=== PATIENT | male | born 1975 | race Caucasian/White ===

== ENCOUNTER → 2016-07-30 | Outpatient (CLI) | payer OTHER | LOC: FIMAGING 09:53 → EDSTATUS 09:54 | PROVIDERS: ATTEND Family Medicine | DX: S92.421A Displaced fracture of distal phalanx of right great toe, initial encounter for closed fracture (principal); M85.871 Other specified disorders of bone density and structure, right ankle and foot ==

== ENCOUNTER 2017-01-20 11:13 | Emergency (ER) | payer OTHER ==
[2017-01-20 11:18] VITALS: TEMP 96.8
--- NOTE | 2017-01-20 11:34 | EDPHY ---
H & P Stated Complaint: dog bite to R pointer finger "tip hanging" Time Seen by Provider: 01/20/17 11:27 HPI/ROS: CHIEF COMPLAINT: Finger amputation HISTORY OF PRESENT ILLNESS: The patient is a 42-year-old man who was breaking up a dog fight and was bitten on the right index finger. He has an amputation to the right index finger at the PIP joint. It is hanging from some fatty tissue. He denies other injuries. It was his pet dog and a neighbor's dog. REVIEW OF SYSTEMS: Constitutional: denies: chills, fever, recent illness, recent injury EENTM: denies: blurred vision, double vision, nose congestion Respiratory: denies: cough, shortness of breath Cardiac: denies: chest pain, irregular heart rate, lightheadedness, palpitations Gastrointestinal/Abdominal: denies: abdominal pain, diarrhea, nausea, vomiting, blood streaked stools Genitourinary: denies: dysuria, frequency, hematuria, pain Musculoskeletal: See HPI Skin: denies: lesions, rash, jaundice, bruising Neurological: denies: headache, numbness, paresthesia, tingling, dizziness, weakness Hematologic/Lymphatic: denies: blood clots, easy bleeding, easy bruising Immunologic/allergic: denies: HIV/AIDS, transplant EXAM: GENERAL: Well-appearing, well-nourished and in no acute distress. HEAD: Atraumatic, normocephalic. EYES: Pupils equal round and reactive to light, extraocular movements intact, sclera anicteric, conjunctiva are normal. ENT: TMs normal, nares patent, oropharynx clear without exudates. Moist mucous membranes. NECK: Normal range of motion, supple without lymphadenopathy or JVD. LUNGS: Breath sounds clear to auscultation bilaterally and equal. No wheezes rales or rhonchi. HEART: Regular rate and rhythm without murmurs, rubs or gallops. ABDOMEN: Soft, nontender, normoactive bowel sounds. No guarding, no rebound. No masses appreciated. BACK: No CVA tenderness, no spinal tenderness, step-offs or deformities EXTREMITIES: Amputated right index finger at the DIP joint. Macerated, pale NEUROLOGICAL: Cranial nerves II through XII grossly intact. Normal speech, normal gait. 5/5 strength, normal movement in all extremities, normal sensation PSYCH: Normal mood, normal affect. SKIN: Warm, dry, normal turgor, no visible rashes or lesions. Source: Patient Exam Limitations: No limitations - Personal History Current Tetanus/Diphtheria Vaccine: Unsure Current Tetanus Diphtheria and Acellular Pertussis (TDAP): Unsure - Medical/Surgical History Hx Asthma: No Hx Chronic Respiratory Disease: No Hx Diabetes: No Hx Cardiac Disease: No Hx Renal Disease: No Hx Cirrhosis: No Hx Alcoholism: No Hx HIV/AIDS: No Hx Splenectomy or Spleen Trauma: No Other PMH: depression - Social History Smoking Status: Never smoked Constitutional: Initial Vital Signs Temperature (C) 36.0 C 01/20/17 11:17 Heart Rate 78 01/20/17 11:17 Respiratory Rate 16 01/20/17 11:17 Blood Pressure 124/71 H 01/20/17 11:17 O2 Sat (%) 98 01/20/17 11:17 O2 Delivery Mode Room Air Allergies/Adverse Reactions: erythromycin base Allergy (Verified 01/20/17 11:16) penicillin G Allergy (Verified 01/20/17 11:16) Home Medications: Medication Instructions Recorded Cephalexin [Keflex] 500 mg PO TID #21 cap 01/20/17 Citalopram 01/20/17 Sulfamethox/Tmp 800/160 mg 1 tab PO BID #14 tab 01/20/17 [Bactrim Ds] oxyCODONE/APAP 5/325 [Percocet 1 - 2 tab PO Q4-6PRN PRN #7 tab 01/20/17 5/325 (RX)] Medical Decision Making - Diagnostics Imaging Results: Imaging Impressions Finger X-Ray 01/20/17 11:35 Impression: Fracture and displacement of the distal phalanx of the right index finger. Procedures: Digital block performed with 5 cc of 0.5% bupivacaine. Tolerated well. ED Course/Re-evaluation: 11:34 a.m. I immediately called [facility] to inquire about reimplantation. As notified that it is unlikely unless it is proximal to the PIP joint. 11:45 a.m. I discussed the case with Dr. Vasques from [facility]. He states that this amputation is not salvageable. I will consult our hand surgeon for amputation. 12:00 p.m. I discussed the case with Dr. Jon Cisneros who will come to the ER to repair. Dr. Cox knows the patient's friends and stopped by and agrees with the plan. I will perform a digital block. 12:[address] Cisneros is here repairing the patient's finger. 12:55 p.m. the patient's finger is been repaired. Dr. Cisneros requests and patient be discharged with Bactrim and Keflex. Differential Diagnosis: Partial list of the Differential diagnosis considered include but were not limited to; amputation, crush injury, and although unlikely based on the history and physical exam, I also considered dislocation, the foreign body. I discussed these differential diagnoses and the plan with the patient as well as the usual and expected course. The patient understands that the diagnosis is provisional and that in medicine we are not always correct and that further workup is often warranted. Usual and customary warnings were given. All of the patient's questions were answered. The patient was instructed to return to the emergency department should the symptoms at all worsen or return, otherwise to followup with the physician as we discussed. - Data Points Medications Given: Discontinued Medications Hydromorphone HCl (Dilaudid) 1 mg IVP EDNOW ONE Stop: 01/20/17 11:39 Last Admin: 01/20/17 11:42 Dose: 1 mg Cefazolin Sodium/Dextrose (Ancef 1 Gm (Premix)) 50 mls @ 200 mls/hr IV EDNOW ONE PRN Reason: Protocol Stop: 01/20/17 13:07 Last Admin: 01/20/17 12:59 Dose: 50 mls Departure - Departure Disposition: Home, Routine, Self-Care Clinical Impression: Amputation of right index finger Condition: Fair Instructions: Finger Amputation (ED) Referrals: Jon Cisneros MD [Medical Doctor] - As per Instructions Prescriptions: Cephalexin [Keflex] 500 mg PO TID #21 cap oxyCODONE/APAP 5/325 [Percocet 5/325 (RX)] 1 - 2 tab PO Q4-6PRN PRN #7 tab PRN Reason: Pain Sulfamethox/Tmp 800/160 mg [Bactrim Ds] 1 tab PO BID #14 tab
[2017-01-20] MEDS: HYDROmorphONE/DILAUDID 1 MG/ML INJ IVP ONE (11:42)
[2017-01-20 13:04] VITALS: BP 108/72; PULSE 52; RESP 18; O2SAT 95
--- NOTE | 2017-01-21 14:36 | GCON ---
[f rep st] CONSULTATION CONSULTATION SUMMARY AND PROCEDURE NOTE CHIEF COMPLAINT: Right finger pain. HISTORY OF PRESENT ILLNESS: The patient was trying to break up a dog fight this morning and was inad vertently bitten by one of the dogs. He has a fingertip amputation at the level of the IP joint. I was asked to see him for evaluation and management. PAST MEDICAL HISTORY: Unremarkable. PAST SURGICAL HISTORY: Unremarkable. MEDICATIONS: None. ALLERGIES: No known drug allergies. FAMILY HISTORY: Unremarkable. 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 REVIEW OF SYSTEMS: Isolated complaints to right upper extremity and right index finger. PHYSICAL EXAMINATION: GENERAL: The patient is alert, oriented and appropriate, in no acute distress . EXTREMITIES: Focused examination of the right upper extremity shows a partial fingertip amputation at the level of the DIP joint. Really, he has a minor amount of palmar soft tissue hanging on, but the finger is completely dysvascular and there is no evidence of vascular supply or intact any struct ure. There is some articular damage as well. There is no evidence of any other ruined contamination and no evidence of any baseline motor, sensory, or other neurologic issues. X-RAYS: X-rays show almost a perfect disarticulation of the DIP joint with a small amount of dorsal bone left behind that was clearly once attached to the extensor mechanism. ASSESSMENT: Amputation, near complete at level of distal interphalangeal joint, right index fingerti p. PLAN AND RECOMMENDATIONS: I have discussed the situation with the patient in detail and he understan ds that this is not a replantable part. The level of the amputation would dictate that it is not rep lantable and even if the part were salvageable with the index finger, it would be a painful and nearl y unusable distal tip. So for a majority of index amputations, regardless of whether or not the level is at the DIP or more proximal, we recommend completion amputation and primary closure. The patient did take photographs of his finger today, and we discussed the detail and he agreed with the plan. The patient did receive IV antibiotics and will be sent home with oral antibiotics after the procedur e to complete the amputation and close it. PROCEDURE NOTE: The patient had a digital block in the emergency room, as well as some pain medicati on administered by the emergency room team. After the digital block was established, I created a alyse rile field and thoroughly irrigated the fingertip using sterile normal saline. I trimmed back the rebecca ne that was left in the spincer mechanism. I trimmed back the condyles of the distal portion of the middle phalanx and made this in a smooth and well-rounded tip devoid of cartilage. Then I carefully mobilized skin flaps. The digital artery and digital nerves were coagulated and amputated so that th ey would not form a neuroma and were allowed to resect back into the finger. Then the interrupted johnson tures were placed for finger closure. A nice closure was achieved. I did use a finger tourniquet du ring this time, and the finger tourniquet was removed. Then a nice sterile dressing was placed. The patient tolerated the procedure well. He will go home on oral antibiotics and see me in followup in the office on Friday. /[id number]/MODL
== END 2017-01-20 13:40 | disposition home or self-care (01) ==
DX: S68.620A Partial traumatic transphalangeal amputation of right index finger, initial encounter (principal); W54.0XXA Bitten by dog, initial encounter; Y99.8 Other external cause status; Y93.89 Activity, other specified
CPT/HCPCS: 96374; J0690; J1170